=== PATIENT | female | born 1955 | race Caucasian/White ===

== ENCOUNTER 2018-06-26 14:20 | Emergency (ER) | payer BC, OTHER | END 2018-06-26 16:05 | disposition home or self-care (01) | LOC: FTE 14:20 | DX: S76.212A Strain of adductor muscle, fascia and tendon of left thigh, initial encounter (principal); X58.XXXA Exposure to other specified factors, initial encounter; Y92.9 Unspecified place or not applicable | CPT/HCPCS: 93971; 99284-25 ==